=== PATIENT | female | born 1985 | race African-American/Black ===

== ENCOUNTER 2024-09-07 06:31 | Emergency (ER) | payer MEDICAID ==
[~2024-09-07] VITALS: Ht 167.6 cm; Wt 66.0 kg
[2024-09-07 06:59] VITALS: O2SAT 100
[2024-09-07] MEDS: LIDOCAINE HCL 1% 20ML VIAL INFIL ONE (07:26)
[2024-09-07] MEDS ORDERED: HIBIL TP (07:47)
[2024-09-07] MEDS: IBUPROFEN 600MG TABLET PO ONE (07:58)
[2024-09-07 08:01] VITALS: BP 108/66; PULSE 84; RESP 18; TEMP 36.66960; O2SAT 100
== END 2024-09-07 08:00 | disposition home or self-care (01) ==
LOC: ER 06:47
DX: L02.31 Cutaneous abscess of buttock (principal); Z88.1 Allergy status to other antibiotic agents; Z88.2 Allergy status to sulfonamides; Z88.3 Allergy status to other anti-infective agents; Z76.0 Encounter for issue of repeat prescription; Z79.899 Other long term (current) drug therapy; Z88.8 Allergy status to other drugs, medicaments and biological substances
CPT/HCPCS: 10060; 99282; J3490; Z7610 ×3

== ENCOUNTER 2024-09-15 07:29 | Emergency (ER) | payer MEDICAID ==
[~2024-09-15] VITALS: Ht 167.6 cm; Wt 81.0 kg
[~2024-09-15 07:29] MED LIST: HIBIL TP
[2024-09-15 07:43] VITALS: BP 122/73; PULSE 98; RESP 18; TEMP 98.3; O2SAT 100
== END 2024-09-15 10:13 | disposition left against medical advice (07) ==
LOC: ER 07:29
DX: L02.31 Cutaneous abscess of buttock (principal); Z53.21 Procedure and treatment not carried out due to patient leaving prior to being seen by health care provider